=== PATIENT | female | born 1940 | race Caucasian/White ===

== ENCOUNTER 2023-12-07 14:53 | Outpatient (REF) | payer MEDICARE, OTHER, SELFPAY ==
[2023-12-14 10:53] LABS: Acetylcholine Recep Modulating 23
[2023-12-29 18:23] LABS: Acetylcholine Recept. Blocking <15 (<15)
[2023-12-29 22:59] LABS: Acetylcholine Receptor Binding <0.30 nmol/L
== END 2023-12-07 14:54 | disposition home or self-care (01) ==
LOC: HO.LAB 14:53
PROVIDERS: PCP Nurse Practitioner Primary Care; Visit Provider Psychiatry & Neurology Neurology
DX: H53.2 Diplopia (principal)
CPT/HCPCS: 36415; 86041; 86042; 86043